=== PATIENT | male | born 1950 | race Caucasian/White ===

== ENCOUNTER → 2016-10-23 | Outpatient (CLI) | payer BC ==
[~2016-10-23] MED LIST: ASPI81TA28 PO; ATEN-173 PO; ATOR10TA88 PO; FLV1 PO; LORA-741 PO; OXYC-57 PO; WARF2TAB PO; ZOLP12.5 PO
== END | disposition home or self-care (01) ==
LOC: C.RDSM 15:13
PROVIDERS: ATTEND Physical Medicine & Rehabilitation Sports Medicine
DX: Z96.652 Presence of left artificial knee joint (principal); M25.562 Pain in left knee

== ENCOUNTER → 2017-03-12 | Outpatient (CLI) | payer BC ==
[~2017-03-12] MED LIST changes: +ATOR10TA82 PO; -ATOR10TA88 PO; -OXYC-57 PO; -WARF2TAB PO
--- NOTE | 2017-03-12 08:49 | DIAGNOSTIC IMAGING REPORT ---
Left knee including bilateral standing AP views and bilateral sunrise views. CLINICAL HISTORY: LEFT KNEE PAIN S/P TKA COMPARISON: 10/23/2016 DISCUSSION: There are postsurgical changes of a total left knee arthroplasty and patellar resurfacing. No fractures or dislocations are visualized. There are no conventional radiographic findings to indicate loosening. There is a possible small joint effusion. IMPRESSION: Postsurgical changes of a total left knee arthroplasty. No evidence of fracture. Possible small joint effusion. Electronically signed by: Ari Doll M.D. 03/12/2017 8:48 AM Dictated Date/Time: 03/12/2017 8:46 AM
== END | disposition home or self-care (01) ==
LOC: C.RDSM 08:30
PROVIDERS: ATTEND Physician Assistant
DX: Z96.652 Presence of left artificial knee joint (principal)

== ENCOUNTER → 2017-09-07 | Outpatient (CLI) | payer OTHER | END | disposition home or self-care (01) | LOC: C.RDSM 12:44 | PROVIDERS: ATTEND Physical Medicine & Rehabilitation Sports Medicine | DX: M17.12 Unilateral primary osteoarthritis, left knee (principal); Z96.652 Presence of left artificial knee joint ==